=== PATIENT | female | born 1955 | race Caucasian/White ===

== ENCOUNTER 2018-08-30 06:43 | Inpatient (IN) | payer MEDICARE, MEDICAID ==
[2018-08-21 11:20] LABS: BASOPHILS # (AUTO) 0.1 X10'3 (0-0.2); BASOPHILS % (AUTO) 1.2 % (0-1); EOSINOPHILS # (AUTO) 0.4 X10'3 (0-0.9); EOSINOPHILS % (AUTO) 4.8 % (0-6); LYMPHOCYTES # (AUTO) 1.9 X10'3 (1.1-4.8); LYMPHOCYTES % (AUTO) 21.2 % (21-51); MEAN CORPUSCULAR HEMOGLOBIN 25.7 PG (27.0-31.0); MEAN CORPUSCULAR HGB CONC 31.6 g/dL (33.0-36.5); MEAN CORPUSCULAR VOLUME 81.4 FL (78-98); MEAN PLATELET VOLUME 7.7 FL (7.4-10.4); MONOCYTES # (AUTO) 0.9 X10'3 (0-0.9); MONOCYTES % (AUTO) 10.2 % (2-12); NEUTROPHILS # (AUTO) 5.6 X10'3 (1.8-7.7); NEUTROPHILS % (AUTO) 62.6 % (42-75); PRE OP PLATELET COUNT 296 X10'3 (140-440); RED BLOOD COUNT 3.69 X10'6 (4.20-5.60); RED CELL DISTRIBUTION WIDTH 16.2 % (11.5-14.5)
[2018-08-21 11:24] LABS: PRE OP HEMOGLOBIN 9.5 g/dL (12.0-16.0)
[2018-08-21 11:32] LABS: ALBUMIN 3.6 G/DL (3.4-5.0); ALBUMIN/GLOBULIN RATIO 1.1 (1.1-1.5); ALKALINE PHOSPHATASE 89 IU/L (46-116); BLOOD UREA NITROGEN 27 MG/DL (7-18); BUN/CREATININE RATIO 22.3 (6.6-38.0); CALCIUM 9.4 MG/DL (8.5-10.1); CHLORIDE 105 MMOL/L (99-107); CREATININE 1.21 MG/DL (0.40-0.90); PRE OP ALT 21 U/L (30-65); PRE OP ANION GAP 6 (8-16); PRE OP AST 13 U/L (10-37); PRE OP BILIRUB, TOTAL 0.3 MG/DL (0.0-1.0); PRE OP GLUCOSE 107 MG/DL (70-104); PRE OP POTASSIUM 4.8 MMOL/L (3.4-5.1); PRE OP SODIUM 139 MMOL/L (135-145); TOTAL CARBON DIOXIDE 28.4 MMOL/L (24-32); TOTAL PROTEIN 6.9 G/DL (6.4-8.2); eGFR 45 ML/MIN
[2018-08-21 11:38] LABS: HEMOGLOBIN A1C 6.6 % (4.5-6.2)
[~2018-08-30] VITALS: Ht 162.6 cm; Wt 108.8 kg
[2018-08-30] VITALS (18 sets, daily range): BP systolic 96–141; BP diastolic 36–77
[~2018-08-30 06:43] MED LIST: ACYC400T PO; AMPH20TA3 PO; ASPI-1265 PO; BISA-4 PO; CALC600T21 PO; CHOL400C8 PO; DICL75TA5 PO; DOCU250C15 PO; GABA-532 PO; HYDR-4353 PO; KEN0.1O TP; LINA145C PO; NYST30CR2 TP; PANT40TA4 PO; POLY17PO10 PO; PRAM0.5T3 PO; ROSU10TA2 PO; SENN-25 PO; SERT100T PO; VANCOMYCIN INJ 1000 MG in NORMAL SALINE 250ml IV.SOLN IV ONE; albuterol 2.5 MG/3 ML nebule NEB ONE; cefazolin/dext.iso 2gm/100 ML IV ONE; famotidine 20mg tablet PO ONE; ringers solution, lacted 1,000 ML IV SCH; tranexamic acid inj. 1,100 MG in normal saline 100ml IV soln 100 ML IV ONE
[2018-08-30] MEDS ORDERED: ketorolac trometh. 30mg/ml inj. ONE (09:29)
[2018-08-30] MEDS ORDERED: ROPIVAcaine 0.5% (5mg/ml) 30ml vial ONE (09:29)
[2018-08-30] MEDS ORDERED: tetracaine 1% (10mg/ml) pres. free inj. ONE (11:23)
[2018-08-30] MEDS ORDERED: MIDAZolam 1mg/ml 10ml vial ONE (11:32)
[2018-08-30] MEDS ORDERED: fentaNYL/PF 50MCG/1 ML 2ML syringe ONE (11:33)
[2018-08-30] MEDS ORDERED: phenylephrine 10mg/ml inj. ONE (11:47)
[2018-08-30] MEDS ORDERED: ROPIVAcaine 0.2%/PF PAIN PUMP 400 ML IJ SCH (13:02)
[2018-08-30] MEDS ORDERED: ringers solution, lacted 1,000 ML IV SCH (13:02)
[2018-08-30] MEDS ORDERED: ondansetron/PF 4mg/2ml inj IV PRN ×2 (13:05→14:00)
[2018-08-30] MEDS ORDERED: morphine 4 MG/ML inj SYRINge IV PRN ×2 (13:05)
[2018-08-30] MEDS ORDERED: proCHLORperazine 10 MG/2 ml inj IV PRN (13:05)
[2018-08-30] MEDS ORDERED: meperidine/PF 25mg/ml syringe IV PRN ×3 (13:05)
[2018-08-30] MEDS ORDERED: ePHEDrine 50MG/ML INJ. ONE (13:41)
[2018-08-30] MEDS ORDERED: propofol inj 20 ML IV ONE (13:41)
[2018-08-30] MEDS ORDERED: tranexamic acid inj. 1,100 MG in normal saline 100ml IV soln 100 ML IV ONE ×2 (14:00→17:15)
[2018-08-30] MEDS ORDERED: acetaminophen 325mg tablet PO PRN (14:00)
[2018-08-30] MEDS ORDERED: HYDROmorphone inj. 0.5 MG/0.5 ML DISP.SYRIN IV PRN (14:00)
[2018-08-30] MEDS ORDERED: bisacodyl 10mg suppository rectal RC PRN (14:00)
[2018-08-30] MEDS ORDERED: diphenhydrAMINE 25mg capsule PO PRN ×2 (14:00)
[2018-08-30] MEDS ORDERED: bisacodyl 5mg tablet.DR PO PRN (14:00)
[2018-08-30] MEDS ORDERED: oxyCODONE IR 5mg (immed. release) tablet PO PRN (14:00)
[2018-08-30] MEDS ORDERED: HYDROcodone/acetaminophen 10/325mg tab PO PRN (14:00)
[2018-08-30] MEDS ORDERED: magnesium hydroxide 30ml (MOM) UD suspension PO PRN (14:00)
--- NOTE | 2018-08-30 14:16 | NUR ---
Received from OR via , accompanied by Anesthesiologist DR PALAFOX and report given by Anesthesiolgist. AWAKE AND KOBI PAIN. VITALS STABLE. DRESSING DI. SENSATION AT THE HIPS. EISENBERG WITH CLEAR URINE.
--- NOTE | 2018-08-30 15:25 | NUR ---
I Received patient report from Selvin CERVANTES
--- NOTE | 2018-08-30 15:26 | NUR ---
Report called to receiving nurse. Transferred via BED Belongings . Special Issues communicated to receiving nurse. AWAKE AND ORIENTED. VITALS STABLE. DRESSING DI. KOBI PAIN. TO ORTHO RM 4027F AT THIS TIME.
--- NOTE | 2018-08-30 15:30 | NUR ---
I have received patient report from Selvin CERVANTES
[2018-08-30] MEDS: ceFAZolin 1GM/D5W- ADD-VANTAGE 50 ML IV SCH (16:16)
[2018-08-30] MEDS: acetaminophen 325mg tablet PO SCH ×2 (16:17→20:35)
[2018-08-30] MEDS: potassium cl 20mEq in 1/2 NS 1,000 ML IV SCH ×2 (17:33→21:58)
--- NOTE | 2018-08-30 18:30 | NUR ---
Patient report given to Vale Maldonado RN
[2018-08-30] MEDS ORDERED: vancomycin/NS 1 GM ADD-VANTAGE 250 ML IV SCH (20:00)
[2018-08-30] MEDS: ADDERALL 20 MG PO SCH (20:00)
[2018-08-30] MEDS: NYSTATIN CREAM - 30GM TUBE TP SCH ×2 (20:00→20:36)
[2018-08-30] MEDS ORDERED: DICLOFENAC SODIUM 75 MG PO SCH (20:00)
[2018-08-30] MEDS: triamcinolone acet 0.1% cream 15gm TP SCH ×2 (20:00→20:36)
[2018-08-30] MEDS: gabapentin 300mg capsule PO SCH (20:33)
[2018-08-30] MEDS: oxyCODONE IR 5mg (immed. release) tablet PO PRN (20:33)
[2018-08-30] MEDS: acyclovir 200 MG capsule PO SCH (20:34)
[2018-08-30] MEDS: calcium carbonate/vitamin D3 tablet PO SCH (20:34)
[2018-08-30] MEDS: pramipexole 0.25mg tablet PO SCH (20:34)
[2018-08-30] MEDS: sertraline 50mg tablet PO SCH (20:34)
[2018-08-30] MEDS: cholecalciferol (vitamin D) 400 unit tablet PO SCH (20:34)
[2018-08-30] MEDS ORDERED: sennosides 8.6mg tablet PO SCH ×2 (21:00)
[2018-08-30] MEDS ORDERED: atorvastatin 20mg tablet PO SCH (21:00)
[2018-08-30] MEDS ORDERED: gabapentin 300mg capsule PO SCH (21:00)
--- NOTE | 2018-08-30 21:05 | NUR ---
PATIENT C/O 12/22 PAIN. INCREASED ON Q TO 6ML/HR.
[2018-08-30] MEDS: HYDROmorphone 1 mg/ml syringe IV PRN (23:22)
--- NOTE | 2018-08-30 23:30 | NUR ---
patient still c/o increased pain to knee. Increased On Q again - up to 8mL/hr. Dilaudid for breakthrough pain. Patient dangled on side of bed and stood up with FWW for appox 3 or [address].
[2018-08-31] MEDS: ceFAZolin 1GM/D5W- ADD-VANTAGE 50 ML IV SCH (00:34)
[2018-08-31] MEDS: acetaminophen 325mg tablet PO SCH ×3 (02:00→13:58)
--- NOTE | 2018-08-31 02:59 | NUR ---
reviewed and agree with SRN assessment findings.
[2018-08-31] MEDS: oxyCODONE IR 5mg (immed. release) tablet PO PRN ×3 (04:15→14:04)
[2018-08-31] MEDS: HYDROmorphone 1 mg/ml syringe IV PRN ×2 (05:23→09:40)
--- NOTE | 2018-08-31 05:38 | NUR ---
ON Q WAS INCREASED TO 10. PATIENT STATES PAIN IS 8/10.
[2018-08-31 06:08] LABS: BASOPHILS # (AUTO) 0.1 X10'3 (0-0.2); BASOPHILS % (AUTO) 0.6 % (0-1); EOSINOPHILS # (AUTO) 0.4 X10'3 (0-0.9); EOSINOPHILS % (AUTO) 4.3 % (0-6); HEMATOCRIT 23.8 % (35.0-45.0); HEMOGLOBIN 7.4 g/dl (12.0-16.0); LYMPHOCYTES # (AUTO) 1.3 X10'3 (1.1-4.8); LYMPHOCYTES % (AUTO) 12.4 % (21-51); MEAN CORPUSCULAR HEMOGLOBIN 25.3 PG (27.0-31.0); MEAN CORPUSCULAR HGB CONC 30.9 g/dL (33.0-36.5); MEAN CORPUSCULAR VOLUME 81.7 FL (78-98); MEAN PLATELET VOLUME 7.7 FL (7.4-10.4); MONOCYTES # (AUTO) 0.9 X10'3 (0-0.9); MONOCYTES % (AUTO) 9.2 % (2-12); NEUTROPHILS # (AUTO) 7.5 X10'3 (1.8-7.7); NEUTROPHILS % (AUTO) 73.5 % (42-75); PLATELET COUNT 226 X10'3 (140-440); RED BLOOD COUNT 2.92 X10'6 (4.20-5.60); RED CELL DISTRIBUTION WIDTH 15.8 % (11.5-14.5); WHITE BLOOD COUNT 10.2 X10'3 (4.5-11.0)
--- NOTE | 2018-08-31 06:20 | NUR ---
Problems reprioritized. Patient report given, questions answered & plan of care reviewed with BILLY Jay.
--- NOTE | 2018-08-31 06:30 | NUR ---
I have received patient report from Vale CERVANTES
[2018-08-31 06:35] VITALS: BP 113/48
[2018-08-31 06:43] LABS: ANION GAP 5 (8-16); CHLORIDE 106 MMOL/L (99-107); SODIUM 138 MMOL/L (135-145); TOTAL CARBON DIOXIDE 27.2 MMOL/L (24-32)
[2018-08-31] MEDS: cholecalciferol (vitamin D) 400 unit tablet PO SCH (07:45)
[2018-08-31] MEDS: gabapentin 300mg capsule PO SCH ×2 (07:45→13:57)
[2018-08-31] MEDS: pramipexole 0.25mg tablet PO SCH ×2 (07:46→13:57)
[2018-08-31] MEDS: acyclovir 200 MG capsule PO SCH (07:46)
[2018-08-31] MEDS: calcium carbonate/vitamin D3 tablet PO SCH (07:46)
[2018-08-31] MEDS: sertraline 50mg tablet PO SCH (07:46)
[2018-08-31] MEDS ORDERED: LINZESS 145 MCG PO SCH (08:00)
[2018-08-31] MEDS: NYSTATIN CREAM - 30GM TUBE TP SCH (08:00)
[2018-08-31] MEDS ORDERED: docusate sod 250mg capsule PO SCH (08:00)
[2018-08-31] MEDS: ADDERALL 20 MG PO SCH (08:00)
[2018-08-31] MEDS ORDERED: pantoprazole 40mg Tablet.DR PO SCH (08:00)
[2018-08-31] MEDS: triamcinolone acet 0.1% cream 15gm TP SCH (08:00)
[2018-08-31] MEDS ORDERED: aspirin 81mg tab.chew PO SCH (08:00)
[2018-08-31] MEDS ORDERED: aspirin 325mg tablet PO SCH (08:30)
[2018-08-31 10:00] VITALS: BP 99/45
--- NOTE | 2018-08-31 11:20 | NUR ---
DM consult: Patient's A1c is 6.6; DM ed not warranted at this time. Will continue to follow. Addendum: 08/31/18 at [address] Amended: Links added.
[2018-08-31] MEDS: potassium cl 20mEq in 1/2 NS 1,000 ML IV SCH (11:24)
--- NOTE | 2018-08-31 14:53 | NUR ---
Patient ambulated 300ft cga x1 with a FWW. No LOB. No SOB. Educated on heel to toe. Completed curb step training
[2018-08-31 15:08] VITALS: BP 102/80
--- NOTE | 2018-08-31 15:20 | NUR ---
Patient and friend taught all discharge instructions. Patient was taken out with Raheem in wheelchair.
[2018-08-31] MEDS ORDERED: celeCOXIB 100mg capsule PO SCH (20:00)
[2018-09-01] MEDS ORDERED: acetaminophen 325mg tablet PO PRN (14:00)
== END 2018-08-31 15:44 | disposition home or self-care (01) | DRG 470 ==
LOC: PAS IN 06:43 → EDSTATUS 13:30 → ORTHO 4S 15:40
PROVIDERS: ADMIT Orthopaedic Surgery; ATTEND Orthopaedic Surgery
PROC: 3E0T3BZ Introduction of Anesthetic Agent into Peripheral Nerves and Plexi, Percutaneous Approach (ICD-10-PCS; 2018-08-30)
PROC: 8E0Y0CZ Robotic Assisted Procedure of Lower Extremity, Open Approach (ICD-10-PCS; 2018-08-30)
PROC: 8E0YXBZ Computer Assisted Procedure of Lower Extremity (ICD-10-PCS; 2018-08-30)
PROC: 0SRC0J9 Replacement of Right Knee Joint with Synthetic Substitute, Cemented, Open Approach (ICD-10-PCS; principal; 2018-08-30 11:31)
DX: M17.11 Unilateral primary osteoarthritis, right knee (principal); Z68.41 Body mass index [BMI] 40.0-44.9, adult; D62 Acute posthemorrhagic anemia; F32.9 Major depressive disorder, single episode, unspecified; F41.9 Anxiety disorder, unspecified; E66.9 Obesity, unspecified; K21.9 Gastro-esophageal reflux disease without esophagitis; I25.10 Atherosclerotic heart disease of native coronary artery without angina pectoris; E78.5 Hyperlipidemia, unspecified; J44.9 Chronic obstructive pulmonary disease, unspecified; E11.9 Type 2 diabetes mellitus without complications; G89.29 Other chronic pain; Z96.652 Presence of left artificial knee joint; Z90.49 Acquired absence of other specified parts of digestive tract; Z88.1 Allergy status to other antibiotic agents; Z88.8 Allergy status to other drugs, medicaments and biological substances
CPT/HCPCS: 36415; 71046; 80051; 80053; 82948; 83036; 85025; 86885; 86900; 86901; 87070; 94640; 94760; 97110; 97116; 97161; 97530; A6455; A7000; C1713; C1758; C1776; G0378; J0690; J1170; J1885; J2250; J2370; J2704; J2795; J3010; J3370; J7030; J7120; Q0163

== ENCOUNTER 2018-09-08 02:11 | Emergency (ER) | payer MEDICARE, MEDICAID ==
[~2018-09-08] VITALS: Ht 163.8 cm; Wt 108.2 kg
[~2018-09-08 02:11] MED LIST changes: -VANCOMYCIN INJ 1000 MG in NORMAL SALINE 250ml IV.SOLN IV ONE; -albuterol 2.5 MG/3 ML nebule NEB ONE; -cefazolin/dext.iso 2gm/100 ML IV ONE; -famotidine 20mg tablet PO ONE; -ringers solution, lacted 1,000 ML IV SCH; -tranexamic acid inj. 1,100 MG in normal saline 100ml IV soln 100 ML IV ONE
[2018-09-08] MEDS ORDERED: ondansetron/PF 4mg/2ml inj IV ONE (03:30)
[2018-09-08] MEDS ORDERED: morphine 4 MG/ML inj SYRINge IV ONE (03:30)
[2018-09-08] MEDS ORDERED: morphine 10mg/ml inj. IV ONE (03:40)
[2018-09-08 03:52] VITALS: BP 135/43
[2018-09-10] MEDS ORDERED: MYC15CR TOP (16:43)
[2018-09-10] MEDS ORDERED: ASPI-845 PO (17:05)
== END 2018-09-08 04:16 | disposition home or self-care (01) ==
LOC: ER 02:11
DX: S80.01XA Contusion of right knee, initial encounter (principal); M25.562 Pain in left knee; I10 Essential (primary) hypertension; J44.9 Chronic obstructive pulmonary disease, unspecified; E11.9 Type 2 diabetes mellitus without complications; Z90.89 Acquired absence of other organs; Z90.710 Acquired absence of both cervix and uterus; Z98.890 Other specified postprocedural states; Z88.5 Allergy status to narcotic agent; Z88.1 Allergy status to other antibiotic agents; Z88.8 Allergy status to other drugs, medicaments and biological substances; Z79.82 Long term (current) use of aspirin; Z79.899 Other long term (current) drug therapy; W06.XXXA Fall from bed, initial encounter; Y93.89 Activity, other specified; Y92.89 Other specified places as the place of occurrence of the external cause; Y99.8 Other external cause status
CPT/HCPCS: 73564; 96374; 96375; 99284; J2270; J2405

== ENCOUNTER 2018-09-10 11:35 | Inpatient (IN) | payer MEDICARE, MEDICAID | END 2018-09-15 13:40 | disposition home health service (06) | LOC: ER 11:35 → PCU 3S 18:59 | DX: A41.9 Sepsis, unspecified organism (principal); J18.9 Pneumonia, unspecified organism; I50.23 Acute on chronic systolic (congestive) heart failure; D62 Acute posthemorrhagic anemia; Z68.41 Body mass index [BMI] 40.0-44.9, adult; N17.9 Acute kidney failure, unspecified; T81.30XA Disruption of wound, unspecified, initial encounter; D35.01 Benign neoplasm of right adrenal gland; E66.01 Morbid (severe) obesity due to excess calories ==

== ENCOUNTER 2019-03-22 08:25 | Inpatient (IN) | payer MEDICARE, MEDICAID ==
[2019-03-19 10:52] LABS: BASOPHILS # (AUTO) 0.1 X10'3 (0-0.2); EOSINOPHILS # (AUTO) 0.4 X10'3 (0-0.9); EOSINOPHILS % (AUTO) 4.2 % (0-6); LYMPHOCYTES # (AUTO) 1.9 X10'3 (1.1-4.8); LYMPHOCYTES % (AUTO) 18.2 % (21-51); MEAN CORPUSCULAR HEMOGLOBIN 27.2 PG (27.0-31.0); MEAN CORPUSCULAR HGB CONC 31.8 g/dL (33.0-36.5); MEAN CORPUSCULAR VOLUME 85.5 FL (78-98); MEAN PLATELET VOLUME 7.9 FL (7.4-10.4); MONOCYTES % (AUTO) 9.3 % (2-12); NEUTROPHILS % (AUTO) 67.3 % (42-75); PRE OP HEMATOCRIT 35.4 % (35.0-45.0); PRE OP HEMOGLOBIN 11.3 g/dL (12.0-16.0); PRE OP PLATELET COUNT 284 X10'3 (140-440); RED BLOOD COUNT 4.14 X10'6 (4.20-5.60); RED CELL DISTRIBUTION WIDTH 16.7 % (11.5-14.5)
[2019-03-19 11:05] LABS: PRE OP PROTIME 10.3 SECONDS (9.0-12.0)
[2019-03-19 11:08] LABS: ALBUMIN 3.3 G/DL (3.4-5.0); ALBUMIN/GLOBULIN RATIO 0.7 (1.1-1.5); ALKALINE PHOSPHATASE 120 IU/L (46-116); BLOOD UREA NITROGEN 30 MG/DL (7-18); BUN/CREATININE RATIO 27.8 (6.6-38.0); CALCIUM 9.7 MG/DL (8.5-10.1); CHLORIDE 105 MMOL/L (99-107); CREATININE 1.08 MG/DL (0.40-0.90); PRE OP ALT 35 U/L (30-65); PRE OP ANION GAP 7 (8-16); PRE OP AST 22 U/L (10-37); PRE OP BILIRUB, TOTAL 0.3 MG/DL (0.0-1.0); PRE OP GLUCOSE 94 MG/DL (70-104); PRE OP POTASSIUM 4.5 MMOL/L (3.4-5.1); PRE OP SODIUM 143 MMOL/L (135-145); TOTAL CARBON DIOXIDE 31.2 MMOL/L (24-32); TOTAL PROTEIN 7.9 G/DL (6.4-8.2); eGFR 51 ML/MIN
[2019-03-19 14:24] LABS: CLARITY,URINE SLIGHTLY CLOUDY (Clear); COLOR,URINE YELLOW (Yellow); GLUCOSE, URINE NEGATIVE (Neg); KETONES,URINE NEGATIVE (Neg); LEUKOCYTE ESTERASE ,URINE SMALL (Neg); NITRITES, URINE NEGATIVE (Neg); OCCULT BLOOD,URINE NEGATIVE (Neg); PROTEIN,URINE NEGATIVE (Neg); UA COLLECTION TYPE CLN CATCH MIDSTREAM; UROBILINOGEN,URINE 0.2 E.U/dL (0.2-1.0)
[2019-03-19 14:31] LABS: SQUAMOUS EPITHELIAL CELL,UR MANY /LPF (FEW)
[2019-03-19 14:32] LABS: TRANSITIONAL EPI CELLS,URINE FEW /HPF
[2019-03-19 14:33] LABS: BACTERIA,URINE FEW /HPF (Neg); RBC,URINE 0-2 /HPF (0-2); WBC,URINE 0-4 /HPF (0-4)
[~2019-03-22] VITALS: Ht 165.1 cm; Wt 102.2 kg
[2019-03-22] VITALS (15 sets, daily range): BP systolic 101–145; BP diastolic 43–78
[~2019-03-22 08:25] MED LIST changes: +ALBU2.5V10 INH; +ALBU8.5H8 INH; -DICL75TA5 PO; +FLUT1BLS3 INH; +MYC15CR TOP; -NYST30CR2 TP; -SENN-25 PO; +SENN15TA6 PO; -SERT100T PO; +albuterol 2.5 MG/3 ML nebule NEB ONE; +cefazolin/dext.iso 2gm/50ml 50 ML IV ONE; +famotidine 20mg tablet PO ONE; +ringers solution, lacted 1,000 ML IV SCH
[2019-03-22] MEDS ORDERED: ketorolac trometh. 30mg/ml inj. ONE (13:20)
[2019-03-22] MEDS ORDERED: ROPIVAcaine 0.5% (5mg/ml) 30ml vial ONE ×2 (13:20→18:39)
[2019-03-22] MEDS ORDERED: tranexamic acid inj. 1,000 MG in normal saline 100ml IV soln 100 ML IV ONE ×5 (14:25→22:00)
[2019-03-22] MEDS ORDERED: HYDROcodone/acetaminophen 10/325mg tab PO ONE (14:45)
[2019-03-22] MEDS ORDERED: tetracaine 1% (10mg/ml) pres. free inj. ONE (15:41)
[2019-03-22] MEDS ORDERED: MIDAZolam 5mg/5ml vial ONE (15:46)
[2019-03-22] MEDS ORDERED: ePHEDrine 50MG/ML INJ. ONE (16:01)
[2019-03-22] MEDS ORDERED: ringers solution, lacted 1,000 ML IV SCH (16:47)
[2019-03-22] MEDS ORDERED: meperidine/PF 25mg/ml syringe IV PRN ×3 (16:50)
[2019-03-22] MEDS ORDERED: proCHLORperazine 10 MG/2 ml inj IV PRN (16:50)
[2019-03-22] MEDS ORDERED: morphine 4 MG/ML inj SYRINge IV PRN ×2 (16:50)
[2019-03-22] MEDS ORDERED: ondansetron/PF 4mg/2ml inj IV PRN ×2 (16:50→19:00)
[2019-03-22 17:20] LABS: APPEARANCE,SYNOVIAL FLUID BLOODY; COLOR,SYNOVIAL FLUID RED; SYN RBC 957500 /CU MM (0); SYN WBC 1750 /CU MM (0-200)
[2019-03-22] MEDS ORDERED: propofol inj 20 ML IV ONE (18:39)
[2019-03-22] MEDS ORDERED: diphenhydrAMINE 50 mg/ml inj ONE (18:39)
[2019-03-22] MEDS ORDERED: ROPIVAcaine 0.2%/PF PUMP/bolus 400 ML ADDCANAL SCH (18:51)
[2019-03-22] MEDS ORDERED: acetaminophen 325mg tablet PO PRN (19:00)
[2019-03-22] MEDS ORDERED: oxyCODONE IR 5mg (immed. release) tablet PO PRN ×2 (19:00)
[2019-03-22] MEDS ORDERED: albuterol 2.5 MG/3 ML nebule NEB PRN (19:00)
[2019-03-22] MEDS ORDERED: magnesium hydroxide 30ml (MOM) UD suspension PO PRN (19:00)
[2019-03-22] MEDS ORDERED: HYDROmorphone 1 mg/ml syringe IV PRN (19:00)
[2019-03-22] MEDS ORDERED: diphenhydrAMINE 25mg capsule PO PRN ×2 (19:00)
[2019-03-22] MEDS ORDERED: HYDROcodone/acetaminophen 10/325mg tab PO PRN (19:00)
[2019-03-22] MEDS ORDERED: bisacodyl 10mg suppository rectal RC PRN (19:00)
[2019-03-22] MEDS ORDERED: HYDROmorphone inj. 0.5 MG/0.5 ML DISP.SYRIN IV PRN (19:00)
[2019-03-22] MEDS ORDERED: NYSTATIN CREAM - 30GM TUBE TP PRN (19:00)
--- NOTE | 2019-03-22 19:15 | NUR ---
Received from OR via ortho bed, accompanied by Anesthesiologist SAVANA and report given by Anesthesiolgist. Pt alert and responsive to all questions. Cardenas catheter draining yellow urine, NC at 2L, all VS stable. 18G left forearm, 500cc bolus running per MD request. EMILY dressing in place with LEONCIO drain and sanguinous fluid, cold pack on knee. Pulses palpable and no complaints of pain.
[2019-03-22] MEDS: ROPIVAcaine 0.2%/PF PUMP/bolus 550 ML INTERSCALE SCH ×2 (19:35→20:54)
--- NOTE | 2019-03-22 19:45 | NUR ---
Patient in room ORTHO 4024. I have received report from BILLY Pryor and had the opportunity to ask questions and assume patient care.
[2019-03-22 19:56] LABS: ALBUMIN 2.6 G/DL (3.4-5.0); ANION GAP 6 (8-16); BLOOD UREA NITROGEN 26 MG/DL (7-18); BUN/CREATININE RATIO 22.6 (6.6-38.0); CALCIUM 8.6 MG/DL (8.5-10.1); CHLORIDE 108 MMOL/L (99-107); CREATININE 1.15 MG/DL (0.40-0.90); GLUCOSE 86 MG/DL (70-104); POTASSIUM 4.3 MMOL/L (3.5-5.1); SODIUM 142 MMOL/L (135-145); TOTAL CARBON DIOXIDE 28.3 MMOL/L (24-32); eGFR 47 ML/MIN
--- NOTE | 2019-03-22 19:59 | NUR ---
Report called to receiving nurse. Transferred via ortho bed to room 4024B. Belongings sent with patient. Special Issues communicated to receiving nurse by phone during report hand off. Bedside RN knows to allow 500cc bolus to complete before switching to ordered IVF for floor use. Pt alert and oriented, BLL, Call light within reach, LEONCIO emptied prior to transfer. All belongings on bed.
[2019-03-22] MEDS ORDERED: vancomycin/NS 1 GM ADD-VANTAGE 250 ML IV SCH (20:00)
[2019-03-22] MEDS: triamcinolone acet 0.1% cream 15gm TP SCH (20:00)
[2019-03-22] MEDS ORDERED: dextroamphetamine/amphetamine 10mg tablet PO SCH (20:00)
--- NOTE | 2019-03-22 20:05 | NUR ---
Patient came to floor via bed. Patient hooked up to post op vitals. Bed locked and low. Call light within reach. SCD's plugged in. IV fluids running per MD orders. Pulses assessed and palpable. Belongings placed in closet.
[2019-03-22] MEDS: potassium cl 20mEq in 1/2 NS 1,000 ML IV SCH (20:35)
[2019-03-22] MEDS: acetaminophen 325mg tablet PO SCH (20:39)
[2019-03-22] MEDS: gabapentin 300mg capsule PO SCH (20:39)
[2019-03-22] MEDS: pramipexole 0.25mg tablet PO SCH (20:40)
[2019-03-22] MEDS: cholecalciferol (vitamin D) 400 unit tablet PO SCH (20:40)
[2019-03-22] MEDS: bisacodyl 5mg tablet.DR PO SCH (20:40)
[2019-03-22] MEDS: calcium carbonate 500mg tablet PO SCH (20:40)
[2019-03-22] MEDS: acyclovir 200 MG capsule PO SCH (20:41)
[2019-03-22] MEDS: sennosides 8.6mg tablet PO SCH (20:41)
[2019-03-22] MEDS ORDERED: SENNOSIDES PO SCH (21:00)
[2019-03-22] MEDS: budesonide 0.5mg/2ml UD nebule IH SCH (21:52)
[2019-03-22] MEDS: ceFAZolin 1GM/D5W- ADD-VANTAGE 50 ML IV SCH (23:49)
[2019-03-23 02:00] VITALS: BP 128/60
[2019-03-23] MEDS: acetaminophen 325mg tablet PO SCH ×2 (02:07→07:51)
[2019-03-23] MEDS: potassium cl 20mEq in 1/2 NS 1,000 ML IV SCH ×2 (05:34→10:58)
--- NOTE | 2019-03-23 05:40 | NUR ---
DC'D merida per order. Patient tolerated well.
[2019-03-23 06:00] VITALS: BP 112/59
--- NOTE | 2019-03-23 06:05 | NUR ---
Patient in room ORTHO 4024. I have received report from JANETT CERVANTES AND RENALDO CERVANTES and had the opportunity to ask questions and assume patient care.
[2019-03-23 06:23] LABS: BASOPHILS % (AUTO) 0.3 % (0-1); EOSINOPHILS # (AUTO) 0.5 X10'3 (0-0.9); EOSINOPHILS % (AUTO) 3.5 % (0-6); HEMATOCRIT 27.5 % (35.0-45.0); HEMOGLOBIN 8.6 g/dl (12.0-16.0); LYMPHOCYTES # (AUTO) 1.9 X10'3 (1.1-4.8); LYMPHOCYTES % (AUTO) 12.7 % (21-51); MEAN CORPUSCULAR HEMOGLOBIN 27.2 PG (27.0-31.0); MEAN CORPUSCULAR HGB CONC 31.2 g/dL (33.0-36.5); MEAN CORPUSCULAR VOLUME 86.9 FL (78-98); MEAN PLATELET VOLUME 7.9 FL (7.4-10.4); NEUTROPHILS # (AUTO) 11.3 X10'3 (1.8-7.7); NEUTROPHILS % (AUTO) 76.5 % (42-75); PLATELET COUNT 206 X10'3 (140-440); RED BLOOD COUNT 3.17 X10'6 (4.20-5.60); RED CELL DISTRIBUTION WIDTH 16.1 % (11.5-14.5); WHITE BLOOD COUNT 14.7 X10'3 (4.5-11.0)
--- NOTE | 2019-03-23 06:23 | NUR ---
Problems reprioritized. Patient report given, questions answered & plan of care reviewed with Amna CERVANTES.
[2019-03-23 06:34] LABS: ANION GAP 7 (8-16); CHLORIDE 106 MMOL/L (99-107); POTASSIUM 4.7 MMOL/L (3.5-5.1); SODIUM 139 MMOL/L (135-145); TOTAL CARBON DIOXIDE 25.6 MMOL/L (24-32)
[2019-03-23] MEDS ORDERED: aspirin 81mg tab.chew PO SCH (08:00)
[2019-03-23] MEDS: triamcinolone acet 0.1% cream 15gm TP SCH ×2 (08:00→20:00)
[2019-03-23] MEDS: atorvastatin 20mg tablet PO SCH (08:05)
[2019-03-23] MEDS: docusate sod 250mg capsule PO SCH (08:05)
[2019-03-23] MEDS: pantoprazole 40mg Tablet.DR PO SCH (08:06)
[2019-03-23] MEDS: acyclovir 200 MG capsule PO SCH ×2 (08:06→20:09)
[2019-03-23] MEDS: gabapentin 300mg capsule PO SCH ×3 (08:06→20:10)
[2019-03-23] MEDS: polyethylene glycol 3350 17gm powd pack PO SCH (08:06)
[2019-03-23] MEDS: pramipexole 0.25mg tablet PO SCH ×3 (08:06→20:10)
[2019-03-23] MEDS: cholecalciferol (vitamin D) 400 unit tablet PO SCH ×2 (08:06→20:09)
[2019-03-23] MEDS: aspirin 325mg tablet PO SCH (08:06)
[2019-03-23] MEDS: calcium carbonate 500mg tablet PO SCH ×2 (08:06→20:09)
[2019-03-23] MEDS: ceFAZolin 1GM/D5W- ADD-VANTAGE 50 ML IV SCH (08:07)
[2019-03-23 08:21] LABS: HEMOGLOBIN A1C 6.1 % (4.5-6.2)
[2019-03-23] MEDS: dextroamphetamine/amphetamine 5mg tablet PO SCH ×2 (08:45→20:00)
[2019-03-23 09:31] LABS: ALBUMIN 2.8 G/DL (3.4-5.0); BLOOD UREA NITROGEN 30 MG/DL (7-18); BUN/CREATININE RATIO 23.4 (6.6-38.0); CALCIUM 8.9 MG/DL (8.5-10.1); CREATININE 1.28 MG/DL (0.40-0.90); GLUCOSE 125 MG/DL (70-104); eGFR 42 ML/MIN
[2019-03-23] MEDS: albuterol 2.5 MG/3 ML nebule NEB PRN (09:37)
[2019-03-23] MEDS: budesonide 0.5mg/2ml UD nebule IH SCH ×2 (09:37→19:11)
[2019-03-23] MEDS: HYDROcodone/acetaminophen 10/325mg tab PO PRN ×3 (09:54→20:10)
[2019-03-23 10:00] VITALS: BP 102/79
[2019-03-23 14:00] VITALS: BP 101/50
--- NOTE | 2019-03-23 14:57 | NUR ---
DM consult: Patient's A1c is 6.9, DM education not warranted at this time. Pt s/p stage 2 left TKA re-implantation seen at bedside provided with written and verbal protein education. Pt reports surgery several years ago where she was taught the importance of protein so she follows and diet sufficient in protein. Pt currently on CHO controlled diet, pending documentation of PO intake. Lunch tray visible during RD visit noted to be about 75% consumed. Pt also with Boost at bedside 100% consumed. Pt reports she drinks two Boosts a day. Pt meeting nutrient needs at this time. Food preference obtained, pt requests soft to chew food d/t ill fitting dentures, diet gelatin BIDLD, diet chocolate pudding with dinner, oatmeal with diet syrup every breakfast, and states she dislikes broccoli, cauliflower, green beans, and coleslaw. All food preferences d/w dietary. Pt provided with RD contact information. Will continue to follow. Addendum: 03/23/19 at [address] Amended: Links added.
[2019-03-23 18:00] VITALS: BP 105/55
--- NOTE | 2019-03-23 18:15 | NUR ---
Problems reprioritized. Patient report given, questions answered & plan of care reviewed with RENALDO CERVANTES.
--- NOTE | 2019-03-23 18:15 | NUR ---
Problems reprioritized. Patient report given, questions answered & plan of care reviewed with RENALDO CERVANTES.
--- NOTE | 2019-03-23 18:30 | NUR ---
Patient in room ORTHO 4024. I have received report from Amna CERVANTES and had the opportunity to ask questions and assume patient care.
[2019-03-23] MEDS: bisacodyl 5mg tablet.DR PO SCH (20:10)
[2019-03-23] MEDS: sennosides 8.6mg tablet PO SCH (20:10)
[2019-03-23 21:00] VITALS: BP 134/60
[2019-03-24] MEDS: HYDROcodone/acetaminophen 10/325mg tab PO PRN ×4 (01:02→18:31)
--- NOTE | 2019-03-24 06:34 | NUR ---
Problems reprioritized. Patient report given, questions answered & plan of care reviewed with Precious CERVANTES.
[2019-03-24 07:00] VITALS: BP 116/62
[2019-03-24 07:02] LABS: BASOPHILS # (AUTO) 0.1 X10'3 (0-0.2); BASOPHILS % (AUTO) 0.5 % (0-1); EOSINOPHILS # (AUTO) 0.7 X10'3 (0-0.9); EOSINOPHILS % (AUTO) 6.2 % (0-6); HEMATOCRIT 24.9 % (35.0-45.0); HEMOGLOBIN 8.2 g/dl (12.0-16.0); LYMPHOCYTES # (AUTO) 1.5 X10'3 (1.1-4.8); LYMPHOCYTES % (AUTO) 12.6 % (21-51); MEAN CORPUSCULAR HEMOGLOBIN 28.3 PG (27.0-31.0); MEAN CORPUSCULAR HGB CONC 32.8 g/dL (33.0-36.5); MEAN CORPUSCULAR VOLUME 86.1 FL (78-98); MEAN PLATELET VOLUME 7.7 FL (7.4-10.4); MONOCYTES # (AUTO) 0.9 X10'3 (0-0.9); MONOCYTES % (AUTO) 8.1 % (2-12); NEUTROPHILS # (AUTO) 8.4 X10'3 (1.8-7.7); NEUTROPHILS % (AUTO) 72.6 % (42-75); PLATELET COUNT 174 X10'3 (140-440); RED BLOOD COUNT 2.89 X10'6 (4.20-5.60); RED CELL DISTRIBUTION WIDTH 16.3 % (11.5-14.5); WHITE BLOOD COUNT 11.6 X10'3 (4.5-11.0)
[2019-03-24 07:09] LABS: ALBUMIN 2.6 G/DL (3.4-5.0); ANION GAP 8 (8-16); BLOOD UREA NITROGEN 24 MG/DL (7-18); BUN/CREATININE RATIO 21.6 (6.6-38.0); CALCIUM 8.9 MG/DL (8.5-10.1); CHLORIDE 107 MMOL/L (99-107); CREATININE 1.11 MG/DL (0.40-0.90); GLUCOSE 152 MG/DL (70-104); POTASSIUM 4.1 MMOL/L (3.5-5.1); SODIUM 141 MMOL/L (135-145); TOTAL CARBON DIOXIDE 25.9 MMOL/L (24-32); eGFR 49 ML/MIN
[2019-03-24] MEDS: pramipexole 0.25mg tablet PO SCH ×3 (07:49→20:38)
[2019-03-24] MEDS: polyethylene glycol 3350 17gm powd pack PO SCH (07:49)
[2019-03-24] MEDS: gabapentin 300mg capsule PO SCH ×3 (07:49→20:37)
[2019-03-24] MEDS: acyclovir 200 MG capsule PO SCH ×2 (07:50→19:31)
[2019-03-24] MEDS: dextroamphetamine/amphetamine 5mg tablet PO SCH ×2 (07:50→20:00)
[2019-03-24] MEDS: pantoprazole 40mg Tablet.DR PO SCH (07:52)
[2019-03-24] MEDS: atorvastatin 20mg tablet PO SCH (07:52)
[2019-03-24] MEDS: cholecalciferol (vitamin D) 400 unit tablet PO SCH ×2 (07:52→19:31)
[2019-03-24] MEDS: docusate sod 250mg capsule PO SCH (07:52)
[2019-03-24] MEDS: calcium carbonate 500mg tablet PO SCH ×2 (07:52→19:31)
[2019-03-24] MEDS: aspirin 325mg tablet PO SCH (07:53)
[2019-03-24] MEDS: triamcinolone acet 0.1% cream 15gm TP SCH ×2 (07:54→20:00)
[2019-03-24] MEDS: budesonide 0.5mg/2ml UD nebule IH SCH ×2 (08:52→20:16)
[2019-03-24] MEDS: albuterol 2.5 MG/3 ML nebule NEB PRN (08:52)
--- NOTE | 2019-03-24 11:46 | NUR ---
SPOKE TO [employer]ULTIPLE [employer]ER REGAURDING MODERATE AMMOUNT OF DRAINAGE IN LEONCIO DRAIN. 50ML OUT AT THIS TIME FOR DAY SHIFT. ORDERS TO REMOVE LEONCIO DRAIN TODAY AND CHARGE FEELS IT IS APPROPRIATE. LEONCIO HERNANDEZ'D
[2019-03-24 14:46] VITALS: BP 122/49
[2019-03-24 18:00] VITALS: BP 135/48
--- NOTE | 2019-03-24 18:09 | NUR ---
Problems reprioritized. Patient report given, questions answered & plan of care reviewed with Lorena CERVANTES.
[2019-03-24] MEDS ORDERED: acetaminophen 325mg tablet PO PRN (19:00)
[2019-03-24] MEDS: bisacodyl 5mg tablet.DR PO SCH (20:37)
[2019-03-24] MEDS: sennosides 8.6mg tablet PO SCH (20:38)
[2019-03-24 22:00] VITALS: BP 104/49
[2019-03-25] MEDS: HYDROcodone/acetaminophen 10/325mg tab PO PRN ×3 (01:50→12:54)
[2019-03-25 06:00] VITALS: BP 134/48
[2019-03-25 06:14] LABS: BASOPHILS # (AUTO) 0.1 X10'3 (0-0.2); BASOPHILS % (AUTO) 0.6 % (0-1); EOSINOPHILS # (AUTO) 0.7 X10'3 (0-0.9); EOSINOPHILS % (AUTO) 5.7 % (0-6); HEMATOCRIT 25.2 % (35.0-45.0); HEMOGLOBIN 8.1 g/dl (12.0-16.0); LYMPHOCYTES % (AUTO) 16.4 % (21-51); MEAN CORPUSCULAR HEMOGLOBIN 27.4 PG (27.0-31.0); MEAN CORPUSCULAR HGB CONC 32.3 g/dL (33.0-36.5); MEAN CORPUSCULAR VOLUME 84.9 FL (78-98); MEAN PLATELET VOLUME 7.7 FL (7.4-10.4); MONOCYTES # (AUTO) 1.1 X10'3 (0-0.9); MONOCYTES % (AUTO) 9.3 % (2-12); NEUTROPHILS # (AUTO) 8.2 X10'3 (1.8-7.7); PLATELET COUNT 202 X10'3 (140-440); RED BLOOD COUNT 2.97 X10'6 (4.20-5.60); RED CELL DISTRIBUTION WIDTH 16.6 % (11.5-14.5)
[2019-03-25 06:28] LABS: ALBUMIN 2.5 G/DL (3.4-5.0); ANION GAP 7 (8-16); BLOOD UREA NITROGEN 20 MG/DL (7-18); BUN/CREATININE RATIO 20.8 (6.6-38.0); CALCIUM 8.9 MG/DL (8.5-10.1); CHLORIDE 108 MMOL/L (99-107); CREATININE 0.96 MG/DL (0.40-0.90); GLUCOSE 113 MG/DL (70-104); SODIUM 143 MMOL/L (135-145); eGFR 58 ML/MIN
--- NOTE | 2019-03-25 06:28 | NUR ---
received report from beronica, rn
[2019-03-25] MEDS: cholecalciferol (vitamin D) 400 unit tablet PO SCH (07:20)
[2019-03-25] MEDS: acyclovir 200 MG capsule PO SCH (07:20)
[2019-03-25] MEDS: gabapentin 300mg capsule PO SCH ×2 (07:20→12:50)
[2019-03-25] MEDS: pramipexole 0.25mg tablet PO SCH ×2 (07:21→12:50)
[2019-03-25] MEDS: pantoprazole 40mg Tablet.DR PO SCH (07:21)
[2019-03-25] MEDS: calcium carbonate 500mg tablet PO SCH (07:21)
[2019-03-25] MEDS: atorvastatin 20mg tablet PO SCH (07:21)
[2019-03-25] MEDS: docusate sod 250mg capsule PO SCH (07:22)
[2019-03-25] MEDS: dextroamphetamine/amphetamine 5mg tablet PO SCH (07:22)
[2019-03-25] MEDS: polyethylene glycol 3350 17gm powd pack PO SCH (07:23)
[2019-03-25] MEDS: aspirin 325mg tablet PO SCH (07:25)
[2019-03-25] MEDS: triamcinolone acet 0.1% cream 15gm TP SCH (07:27)
[2019-03-25] MEDS: budesonide 0.5mg/2ml UD nebule IH SCH (08:03)
[2019-03-25 10:20] VITALS: BP 130/54
--- NOTE | 2019-03-25 14:44 | NUR ---
gave report to heri at [facility]
--- NOTE | 2019-03-25 15:10 | NUR ---
pt d/c with all belongings in wheelchair to go to [facility] and f/u w/surgeon
== END 2019-03-25 15:10 | DRG 467 ==
LOC: PAS 08:25 → PAS IN 08:30 → EDSTATUS 12:15 → ORTHO 4S 20:00
PROVIDERS: ADMIT Orthopaedic Surgery; ATTEND Orthopaedic Surgery
PROC: 0SRD069 Replacement of Left Knee Joint with Oxidized Zirconium on Polyethylene Synthetic Substitute, Cemented, Open Approach (ICD-10-PCS; 2019-03-22)
PROC: 5A09357 Assistance with Respiratory Ventilation, Less than 24 Consecutive Hours, Continuous Positive Airway Pressure (ICD-10-PCS; 2019-03-22)
PROC: 3E0T3BZ Introduction of Anesthetic Agent into Peripheral Nerves and Plexi, Percutaneous Approach (ICD-10-PCS; 2019-03-22)
PROC: 0SPD08Z Removal of Spacer from Left Knee Joint, Open Approach (ICD-10-PCS; principal; 2019-03-22 15:42)
PROC: 5A09357 Assistance with Respiratory Ventilation, Less than 24 Consecutive Hours, Continuous Positive Airway Pressure (ICD-10-PCS; 2019-03-24)
DX: Z47.33 Aftercare following explantation of knee joint prosthesis (principal); D62 Acute posthemorrhagic anemia; E78.5 Hyperlipidemia, unspecified; I25.10 Atherosclerotic heart disease of native coronary artery without angina pectoris; J44.9 Chronic obstructive pulmonary disease, unspecified; F32.9 Major depressive disorder, single episode, unspecified; K21.9 Gastro-esophageal reflux disease without esophagitis; G47.30 Sleep apnea, unspecified; E11.9 Type 2 diabetes mellitus without complications; E66.01 Morbid (severe) obesity due to excess calories; M19.90 Unspecified osteoarthritis, unspecified site; E78.00 Pure hypercholesterolemia, unspecified; Z96.651 Presence of right artificial knee joint; F43.10 Post-traumatic stress disorder, unspecified; F41.9 Anxiety disorder, unspecified; I10 Essential (primary) hypertension; Z88.1 Allergy status to other antibiotic agents; Z88.6 Allergy status to analgesic agent; Z88.8 Allergy status to other drugs, medicaments and biological substances; Z79.82 Long term (current) use of aspirin; Z90.710 Acquired absence of both cervix and uterus; Z90.49 Acquired absence of other specified parts of digestive tract; Z98.84 Bariatric surgery status; Z87.891 Personal history of nicotine dependence; Z68.37 Body mass index [BMI] 37.0-37.9, adult
CPT/HCPCS: 36415; 80048; 80053; 81001; 82948; 83036; 85025; 85610; 85730; 86885; 86900; 86901; 87070; 87075; 87081; 89051; 94640; 94760; 97110; 97116; 97161; 97530; A6258; A6402; A7000; A9272; C1713; C1758; C1776; G0378; J0690; J1170; J1200; J1885; J2250; J2704; J2795; J3370; J3480; J7030; J7120; J7626

== ENCOUNTER 2019-05-15 08:14 | Emergency (ER) | payer MEDICARE, MEDICAID ==
[~2019-05-15] VITALS: Ht 165.1 cm; Wt 102.7 kg
[~2019-05-15 08:14] MED LIST changes: -albuterol 2.5 MG/3 ML nebule NEB ONE; -cefazolin/dext.iso 2gm/50ml 50 ML IV ONE; -famotidine 20mg tablet PO ONE; -ringers solution, lacted 1,000 ML IV SCH
[2019-05-15 09:09] LABS: BASOPHILS # (AUTO) 0.1 X10'3 (0-0.2); EOSINOPHILS # (AUTO) 0.5 X10'3 (0-0.9); EOSINOPHILS % (AUTO) 5.3 % (0-6); HEMOGLOBIN 8.3 g/dl (12.0-16.0); LYMPHOCYTES # (AUTO) 1.8 X10'3 (1.1-4.8); MEAN CORPUSCULAR HEMOGLOBIN 23.3 PG (27.0-31.0); MEAN CORPUSCULAR HGB CONC 30.6 g/dL (33.0-36.5); MEAN CORPUSCULAR VOLUME 76.3 FL (78-98); MEAN PLATELET VOLUME 7.5 FL (7.4-10.4); MONOCYTES # (AUTO) 0.9 X10'3 (0-0.9); MONOCYTES % (AUTO) 10.1 % (2-12); NEUTROPHILS # (AUTO) 5.3 X10'3 (1.8-7.7); NEUTROPHILS % (AUTO) 62.6 % (42-75); PLATELET COUNT 307 X10'3 (140-440); RED BLOOD COUNT 3.54 X10'6 (4.20-5.60); WHITE BLOOD COUNT 8.5 X10'3 (4.5-11.0)
[2019-05-15 09:18] LABS: ALANINE AMINOTRANSFERASE 21 U/L (12-78); ALBUMIN 3.6 G/DL (3.4-5.0); ALBUMIN/GLOBULIN RATIO 0.9 (1.1-1.5); ALKALINE PHOSPHATASE 153 IU/L (46-116); ANION GAP 4 (8-16); ASPARTATE AMINO TRANSFERASE 21 U/L (10-37); BILIRUBIN,TOTAL 0.2 MG/DL (0.1-1.0); BLOOD UREA NITROGEN 35 MG/DL (7-18); CALCIUM 9.3 MG/DL (8.5-10.1); CHLORIDE 111 MMOL/L (99-107); GLUCOSE 92 MG/DL (70-104); SODIUM 145 MMOL/L (135-145); TOTAL CARBON DIOXIDE 30.5 MMOL/L (24-32); TOTAL PROTEIN 7.4 G/DL (6.4-8.2); eGFR 38 ML/MIN
[2019-05-15 09:22] LABS: POTASSIUM 5.3 MMOL/L (3.5-5.1)
[2019-05-15 09:25] LABS: MAGNESIUM 2.2 MG/DL (1.5-2.4)
[2019-05-15 09:56] LABS: ANISOCYTOSIS 2+; MICROCYTOSIS 1+; PLATELET ESTIMATE NORMAL
[2019-05-15 09:58] LABS: POLYCHROMASIA FEW
[2019-05-15 10:09] LABS: ELLIPTOCYTES FEW; HYPOCHROMASIA 3+
[2019-05-15 10:29] LABS: CLARITY,URINE SLIGHTLY CLOUDY (Clear); COLOR,URINE YELLOW (Yellow); GLUCOSE, URINE NEGATIVE (Neg); KETONES,URINE NEGATIVE (Neg); LEUKOCYTE ESTERASE ,URINE MODERATE (Neg); NITRITES, URINE NEGATIVE (Neg); OCCULT BLOOD,URINE NEGATIVE (Neg); PROTEIN,URINE NEGATIVE (Neg); UROBILINOGEN,URINE 0.2 E.U/dL (0.2-1.0)
[2019-05-15 10:41] LABS: UA COLLECTION TYPE CLN CATCH MIDSTREAM
[2019-05-15 10:47] LABS: BACTERIA,URINE 1+ /HPF (Neg); SQUAMOUS EPITHELIAL CELL,UR MODERATE /LPF (FEW)
[2019-05-15 10:48] LABS: RBC,URINE 0-2 /HPF (0-2); WBC CLUMPS,URINE FEW /HPF (NEGATIVE)
[2019-05-15 11:20] VITALS: BP 123/91
== END 2019-05-15 11:22 | disposition home or self-care (01) ==
LOC: ER 08:15
DX: R79.9 Abnormal finding of blood chemistry, unspecified (principal); I10 Essential (primary) hypertension; J44.9 Chronic obstructive pulmonary disease, unspecified; E11.9 Type 2 diabetes mellitus without complications; Z90.49 Acquired absence of other specified parts of digestive tract; Z90.710 Acquired absence of both cervix and uterus; Z98.890 Other specified postprocedural states; Z88.8 Allergy status to other drugs, medicaments and biological substances; Z88.1 Allergy status to other antibiotic agents; Z88.5 Allergy status to narcotic agent; Z79.82 Long term (current) use of aspirin; Z79.899 Other long term (current) drug therapy
CPT/HCPCS: 36415; 71045; 80053; 81001; 83735; 83880; 84484; 85025; 86885; 86900; 86901; 87077; 87088; 87186; 93005; 99284

== ENCOUNTER 2020-07-15 08:00 | Outpatient (CLI) | payer MEDICARE, MEDICAID ==
[~2020-07-15] VITALS: Ht 163.8 cm; Wt 102.1 kg
[~2020-07-15 08:00] MED LIST changes: -AMPH20TA3 PO; -BISA-4 PO; -PANT40TA4 PO; +PANT40TA54 PO; -POLY17PO10 PO; +ceFAZolin 2gm in dextrose, iso 50 ML IV ONE; +famotidine 20mg tablet PO ONE; +ringers solution, lacted 1,000 ML IV SCH
== END 2020-07-15 23:59 | disposition home or self-care (01) ==
LOC: PRE-OP 08:00 → EDSTATUS 12:15 → PRE-OP 23:59
PROVIDERS: ATTEND Surgery
DX: Z53.9 Procedure and treatment not carried out, unspecified reason (principal); L98.492 Non-pressure chronic ulcer of skin of other sites with fat layer exposed; K45.8 Other specified abdominal hernia without obstruction or gangrene
CPT/HCPCS: J7120

== ENCOUNTER 2020-07-30 15:46 | Emergency (ER) | payer MEDICARE, MEDICAID ==
[~2020-07-30] VITALS: Ht 162.6 cm; Wt 100.9 kg
[~2020-07-30 15:46] MED LIST changes: -ceFAZolin 2gm in dextrose, iso 50 ML IV ONE; -famotidine 20mg tablet PO ONE; -ringers solution, lacted 1,000 ML IV SCH
[2020-07-30 16:02] VITALS: BP 158/60
[2020-07-30] MEDS ORDERED: ondansetron 4mg rapidly disintigrating tab PO ONE (17:15)
[2020-07-30] MEDS ORDERED: HYDROcodone/acetaminophen 5mg/325mg tablet PO ONE (17:15)
[2020-07-30] MEDS ORDERED: HYDR-3965 PO (17:47)
[2020-07-30] MEDS ORDERED: ONDA4TAB6 PO (17:47)
== END 2020-07-30 17:55 | disposition home or self-care (01) ==
LOC: ER 15:46
DX: M25.561 Pain in right knee (principal); M25.562 Pain in left knee; I10 Essential (primary) hypertension; J44.9 Chronic obstructive pulmonary disease, unspecified; E11.9 Type 2 diabetes mellitus without complications; Z90.89 Acquired absence of other organs; Z90.49 Acquired absence of other specified parts of digestive tract; Z90.710 Acquired absence of both cervix and uterus; Z98.890 Other specified postprocedural states; Z88.5 Allergy status to narcotic agent; Z88.1 Allergy status to other antibiotic agents; Z88.8 Allergy status to other drugs, medicaments and biological substances; Z79.2 Long term (current) use of antibiotics; Z79.899 Other long term (current) drug therapy
CPT/HCPCS: 73560; 99284